=== PATIENT | female | born 1995 | race Caucasian/White ===

== ENCOUNTER 2018-07-22 21:04 | Emergency (ER) | payer SELFPAY ==
--- NOTE | 2018-07-23 00:21 | ER Document Report ---
ED Medical Screen (RME) - General Chief Complaint: Vag Bleeding, +preg <12wks Stated Complaint: BLEEDING IN , 10-12WKS Time Seen by Provider: 07/23/18 00:13 Mode of Arrival: Ambulatory Information source: Patient Notes: Patient is a 23-year-old female comes emergency room complaining of being in her approximately 10-12 weeks and she started with bleeding this evening. She states she been experiencing some cramping for the past couple of days but tonight around 830 she started having some bleeding. She said it is not as heavy as her normal. It is about a third of that but it is some darkish red blood. Patient denies any nausea or vomiting. She is 2 para 0 a 1 the last ended in a miscarriage was 4 years ago. Patient denies any other medical problems. TRAVEL OUTSIDE OF THE [place] IN LAST 30 DAYS: No - HPI Onset: Other - 4-1/2 hours ago Onset/Duration: Sudden Quality of pain: Cramping Severity: Moderate Pain Level: 3 Exacerbated by: Denies Relieved by: Denies Similar symptoms previously: No Recently seen / treated by doctor: No - Related Data Smoking: Non-smoker Frequency of alcohol use: None Drug Abuse: None Allergies/Adverse Reactions: Iodine and Iodide Containing Produc Allergy (Verified 07/22/18 21:05) Past Medical History - General Information source: Patient - Social History Cigarette use (# per day): No Chew tobacco use (# tins/day): No Frequency of alcohol use: Rare Drug Abuse: None Lives with: Family Family history: Reviewed & Not Pertinent Review of Systems - Review of Systems Constitutional: No symptoms reported EENT: No symptoms reported Cardiovascular: No symptoms reported Respiratory: No symptoms reported Gastrointestinal: No symptoms reported Genitourinary: No symptoms reported Female Genitourinary: See HPI, Vaginal bleeding Musculoskeletal: No symptoms reported Skin: No symptoms reported Hematologic/Lymphatic: No symptoms reported Neurological/Psychological: No symptoms reported -: Yes All other systems reviewed and negative Physical Exam - Vital signs Vitals: Temp Pulse Resp BP Pulse Ox 98.7 F 80 18 123/59 L 100 07/22/18 21:21 07/22/18 21:21 07/22/18 21:21 07/22/18 21:21 07/22/18 21:21 Interpretation: Normal - Notes Notes: PHYSICAL EXAMINATION: GENERAL: Well-appearing, well-nourished and in no acute distress. HEAD: Atraumatic, normocephalic. EYES: Pupils equal round and reactive to light, extraocular movements intact, conjunctiva are normal. ENT: Nares patent, oropharynx clear without exudates. Moist mucous membranes. NECK: Normal range of motion, supple without lymphadenopathy LUNGS: Breath sounds clear to auscultation bilaterally and equal. No wheezes rales or rhonchi. HEART: Regular rate and rhythm without murmurs ABDOMEN: Soft, nontender, nondistended abdomen. No guarding, no rebound. No masses appreciated. Female : deferred Musculoskeletal: Normal range of motion, no pitting or edema. No cyanosis. NEUROLOGICAL: Cranial nerves grossly intact. Normal speech, normal gait. Normal sensory, motor exams PSYCH: Normal mood, normal affect. SKIN: Warm, Dry, normal turgor, no rashes or lesions noted. Course - Re-evaluation Re-evalutation: 07/23/18 00:20 Patient interjects that they did have sexual intercourse earlier today. Also states they are moving back into the town and have been moving heavy and lifting heavy boxes. - Vital Signs Vital signs: Temp Pulse Resp BP Pulse Ox 98.7 F 80 18 123/59 L 100 07/22/18 21:21 07/22/18 21:21 07/22/18 21:21 07/22/18 21:21 07/22/18 21:21 Doctor's Discharge - Discharge Clinical Impression: Abnormal vaginal bleeding, Threatened miscarriage in early
[2018-07-23 00:47] LABS: ABSOLUTE EOSINOPHILS # (AUTO) 0.2 10^3/uL (0.0-0.6); ABSOLUTE LYMPHOCYTES (AUTO) 3.4 10^3/uL (0.5-4.7); ABSOLUTE MONOCYTES (AUTO) 0.9 10^3/uL (0.1-1.4); ABSOLUTE NEUT (AUTO) 6.3 10^3/uL (1.7-8.2); BASOPHILS % (AUTO) 0.4 % (0-2); EOSINOPHILS % (AUTO) 1.7 % (0-6); HEMATOCRIT 39.4 % (36.0-47.0); HEMOGLOBIN 13.5 g/dL (12.0-15.5); LYMPHOCYTES % (AUTO) 31.6 % (13-45); MEAN CORPUSCULAR HGB CONC 34.2 g/dL (32.0-36.0); MEAN CORPUSCULAR VOLUME 91 fl (80-97); MONOCYTES % (AUTO) 7.8 % (3-13); PLATELET COUNT 216 10^3/uL (150-450); RED BLOOD COUNT 4.35 10^6/uL (3.72-5.28); SEGMENTED NEUTROPHILS % (AUTO) 58.5 % (42-78); TOTAL CELLS COUNTED % (AUTO) 100 %; WHITE BLOOD COUNT 10.8 10^3/uL (4.0-10.5)
[2018-07-23 00:51] LABS: APPEARANCE,URINE SLIGHTLY-CLOUDY; BILIRUBIN,URINE NEGATIVE (NEGATIVE); COLOR,URINE YELLOW; GLUCOSE, URINE NEGATIVE (NEGATIVE); KETONES,URINE 20 mg/dL (NEGATIVE); LEUKOCYTE ESTERASE,URINE NEGATIVE (NEGATIVE); NITRITE,URINE NEGATIVE (NEGATIVE); PROTEIN,URINE NEGATIVE (NEGATIVE); UROBILINOGEN,URINE NEGATIVE mg/dL (<2.0)
--- NOTE | 2018-07-23 01:34 | ER Document Report ---
ED General - General Chief Complaint: Vag Bleeding, +preg <12wks Stated Complaint: BLEEDING IN , 10-12WKS Time Seen by Provider: 07/23/18 00:13 Mode of Arrival: Ambulatory TRAVEL OUTSIDE OF THE [place] IN LAST 30 DAYS: No - HPI Patient complains to provider of: vaginal bleeding Onset: Other - 23-year-old female who presents for evaluation of vaginal bleeding in the setting of being approximately 8 weeks to 10 weeks . She had not been seen previously for this and has not had an ultrasound to confirm it. She started to have faint cramps without any abdominal pain or trauma with some vaginal spotting thereafter no passage of clots. She denies any fevers or chills, previous episodes like this or other symptoms. She had been having intercourse prior to the initiation of this bleeding. - Related Data Allergies/Adverse Reactions: Iodine and Iodide Containing Produc Allergy (Verified 07/22/18 21:05) Past Medical History - General Information source: Patient - Social History Smoking Status: Never Smoker Cigarette use (# per day): No Chew tobacco use (# tins/day): No Frequency of alcohol use: Rare Drug Abuse: None Lives with: Family Family History: None Patient has suicidal ideation: No Patient has homicidal ideation: No Renal/ Medical History: Denies: Hx Peritoneal Dialysis Past Surgical History: Reports: Hx Orthopedic Surgery - leg Review of Systems - Review of Systems -: Yes All other systems reviewed and negative Physical Exam - Vital signs Vitals: Temp Pulse Resp BP Pulse Ox 98.7 F 80 18 123/59 L 100 07/22/18 21:21 07/22/18 21:21 07/22/18 21:21 07/22/18 21:21 07/22/18 21:21 - General General appearance: Appears well In distress: None - HEENT Head: Normocephalic Eyes: Normal Conjunctiva: Normal Cornea: Normal Extraocular movements intact: Yes Eyelashes: Normal Pupils: PERRL - Respiratory Respiratory status: No respiratory distress Chest status: Nontender Breath sounds: Normal Chest palpation: Normal - Cardiovascular Rhythm: Regular Heart sounds: Normal auscultation Murmur: No - Abdominal Inspection: Normal Distension: No distension Tenderness: Nontender - Back Back: Normal - Extremities General upper extremity: Normal inspection, Nontender, Normal strength, Normal temperature General lower extremity: Normal inspection, Nontender, Normal strength, Normal temperature - Neurological Neuro grossly intact: Yes Cognition: Normal Orientation: AAOx4 Malcom Coma Scale Eye Opening: Spontaneous Ward Coma Scale Verbal: Oriented Malcom Coma Scale Motor: Obeys Commands Malcom Coma Scale Total: 15 Speech: Normal Cranial nerves: Normal Cerebellar coordination: Normal Motor strength normal: LUE, RUE, LLE, RLE - Psychological Associated symptoms: Normal affect Course - Re-evaluation Re-evalutation: 07/24/18 02:25 23-year-old female presents for evaluation of vaginal bleeding in the concern for . Examination the patient through triage had an ultrasound ordered as well as blood work ordered referral RhoGam workup. She is a negative, she is having vaginal spotting in the setting of if positive nature, will plan for administration of RhoGam. Intrauterine is not identified under ultrasound, she is above the discretionary zone for hCG level. It is possible that she has an ectopic it is possible that she has a missed . We that she needs a 48-hour recheck of her quant. She is hemodynamically stable at this time not actively bleeding do not believe she requires emergent evaluation for possible ectopic do not believe that she is actively hemorrhaging. Current plan will be for this patient undergo discharge with return precautions of 48-72-hour recheck of her hCG, she is in agreement with this course of action at this time. At the time of discharge she was hemodynamically stable. - Vital Signs Vital signs: Temp Pulse Resp BP Pulse Ox 98.4 F 93 17 116/62 100 07/23/18 02:28 07/23/18 03:48 07/23/18 03:48 07/23/18 03:48 07/23/18 03:48 - Laboratory Result Diagrams: 07/23/18 00:34 Laboratory results interpreted by me: 07/23/18 07/23/18 07/23/18 00:34 00:34 00:34 WBC 10.8 H Beta HCG, Quant 83677.00 H Urine Ketones 20 H Urine Blood MODERATE H Discharge - Discharge Clinical Impression: Abnormal vaginal bleeding, Threatened miscarriage in early Condition: Good Disposition: HOME, SELF-CARE Instructions: [facility] Doctors, Rhogam ([facility]), Threatened Miscarriage ([facility]) Additional Instructions: Your seen today in the emergency department for your vaginal bleeding as well as . He had an ultrasound performed as well as blood tests. You are given a medicine called [facility]. You should call your OB tomorrow for an appointment in 2 days to have a repeat check of your hCG level as well as your ultrasound. Your hCG level here today is 15,000, we were unable to see a normal in your uterus today. You should return in case of any bleeding, pelvic pain, worsening abdominal pain lightheadedness or passing out.
--- NOTE | 2018-07-23 02:25 | RADIOLOGY REPORT (SQ) ---
EXAM DESCRIPTION: US TRANSVAGINAL COMPLETED DATE/TME: 07/23/2018 00:14 CLINICAL HISTORY: 23 years Female, bleeding Approx 10 weeks Comparison: None. TECHNIQUE: Transvaginal. LIMITATIONS: None. FINDINGS: No definite intrauterine gestation confirmed. Possible intrauterine gestational sac with yolk sac measures 1.2 cm. Nonvisualized right ovary, 2.3-cm left ovary, 2.0-cm cervical length, and no free fluid. IMPRESSION: No intrauterine confirmed. Differential diagnosis includes early viable intrauterine gestation, gestational loss, and occult ECTOPIC gestation. Recommend 48 -72 hours laboratory/sonographic surveillance.
[2018-07-23 03:50] VITALS: BP 116/62
== END 2018-07-23 03:48 | disposition home or self-care (01) ==
LOC: ER 21:04
DX: O20.0 Threatened abortion (principal); Z3A.10 10 weeks gestation of pregnancy
CPT/HCPCS: 99284; 96372; 86900; 86901; 36415; 86850; 84702; 85025; 81001; 76817; J2790